=== PATIENT | male | born 1950 | race Caucasian/White ===

== ENCOUNTER 2018-12-08 20:54 | Emergency (ER) | payer OTHER ==
[~2018-12-08] VITALS: Ht 185.4 cm; Wt 181.4 kg
[2018-12-08 21:47] LABS: ABSOLUTE BASOPHILS 0.1 thou/uL (0.0-0.2); ABSOLUTE EOSINOPHILS 0.3 thou/uL (0.0-0.7); ABSOLUTE LYMPHOCYTES 2.2 thou/uL (0.8-5.3); ABSOLUTE MONOCYTES 0.9 thou/uL (0.0-1.2); ABSOLUTE NEUTROPHILS 5.6 thou/uL (1.6-8.1); BASOPHILS 1.3 %; EOSINOPHILS 3.3 %; HEMATOCRIT 37.6 % (42.0-52.0); HEMOGLOBIN 12.8 gm/dL (14.0-18.0); LYMPHOCYTES 23.8 %; MCH 32.8 pg (26.0-34.0); MCV 96.5 fL (80.0-100.0); MONOCYTES 10.1 %; MPV 8.5 fl. (7.2-11.1); NUCLEATED RBCS 0 /100WBC; PLATELET COUNT* 186 thou/uL (150-400); POLYS 61.5 %; RDW-CV 14.3 % (10.5-14.5); WBC 9.1 thou/uL (4.0-11.0)
[2018-12-08 21:51] LABS: ANION GAP 7 mmol/L (7-16); BUN 15 mg/dL (7-18); CALCIUM 8.5 mg/dL (8.5-10.1); CHLORIDE 105 mmol/L (98-107); CO2 27 mmol/L (21-32); CREATININE 1.2 mg/dL (0.6-1.3); GLUCOSE 113 mg/dL (70-99); POTASSIUM 4.1 mmol/L (3.5-5.1); SODIUM 139 mmol/L (136-145)
[2018-12-08 21:58] LABS: ALBUMIN 2.9 g/dL (3.4-5.0); ALKALINE PHOSPHATASE 77 U/L (46-116); SGOT 18 U/L (15-37); SGPT 22 U/L (30-65); TOTAL BILIRUBIN 0.4 mg/dL (<0.1-1.0); TOTAL PROTEIN 6.6 g/dL (6.4-8.2); TROPONIN-I LEVEL <0.06 ng/mL (<0.06)
[2018-12-08] MEDS ORDERED: LASIX 40 MG TAB40 M2 PO (22:32)
[2018-12-08] MEDS ORDERED: MEDROLDOSEPACK PO (22:32)
[2018-12-08] MEDS ORDERED: KEFLEX500 M1 PO (22:32)
[2018-12-08 23:08] VITALS: BP 157/74
--- NOTE | 2018-12-09 12:14 | EKG ---
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1950 Requested By: Gina Chou Order Number: [id number] MD: Jun Cho Measurements Intervals [place] Rate: 110 P: 268 IA: 158 QRS: -51 QRSD: 99 T: 43 QT: 325 QTc: 440 Interpretive Statements Sinus or ectopic atrial tachycardia LAD, consider left anterior fascicular block Abnormal R-wave progression, early transition No previous ECG available for comparison Electronically Signed On 12-09-2018 12:14:28 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
== END 2018-12-08 23:14 | disposition home or self-care (01) ==
LOC: M.ERS 20:54
PROVIDERS: Physician Assistant
DX: R21 Rash and other nonspecific skin eruption (principal); R60.0 Localized edema; E03.9 Hypothyroidism, unspecified; G47.30 Sleep apnea, unspecified; Z95.5 Presence of coronary angioplasty implant and graft

== ENCOUNTER 2019-01-23 16:47 | Emergency (ER) | payer OTHER ==
[~2019-01-23] VITALS: Ht 190.5 cm; Wt 193.7 kg
[~2019-01-23 16:47] MED LIST: KEFLEX500 M1 PO; LASIX 40 MG TAB40 M2 PO; MEDROLDOSEPACK PO
[2019-01-23 17:10] LABS: ABSOLUTE BASOPHILS 0.1 thou/uL (0.0-0.2); ABSOLUTE EOSINOPHILS 0.1 thou/uL (0.0-0.7); ABSOLUTE LYMPHOCYTES 2.3 thou/uL (0.8-5.3); ABSOLUTE MONOCYTES 1.5 thou/uL (0.0-1.2); ABSOLUTE NEUTROPHILS 8.4 thou/uL (1.6-8.1); BASOPHILS 0.9 %; EOSINOPHILS 0.6 %; HEMOGLOBIN 13.4 gm/dL (14.0-18.0); LYMPHOCYTES 18.4 %; MCH 31.8 pg (26.0-34.0); MCHC 33.5 g/dL (28.0-37.0); MCV 94.9 fL (80.0-100.0); MONOCYTES 11.9 %; MPV 8.2 fl. (7.2-11.1); NUCLEATED RBCS 0 /100WBC; PLATELET COUNT* 210 thou/uL (150-400); POLYS 68.2 %; RBC 4.21 mil/uL (4.50-6.00); RDW-CV 14.1 % (10.5-14.5); WBC 12.3 thou/uL (4.0-11.0)
[2019-01-23 17:19] LABS: APTT 28.7 Seconds (25.0-31.3); INR 1.1; PROTIME 10.9 Seconds (9.20-11.50)
[2019-01-23 17:29] LABS: ANION GAP 10 mmol/L (7-16); BUN 17 mg/dL (7-18); CALCIUM 8.8 mg/dL (8.5-10.1); CHLORIDE 104 mmol/L (98-107); CO2 27 mmol/L (21-32); CREATININE 1.1 mg/dL (0.6-1.3); GLUCOSE 107 mg/dL (70-99); POTASSIUM 4.1 mmol/L (3.5-5.1); SODIUM 141 mmol/L (136-145); TROPONIN-I LEVEL <0.06 ng/mL (<0.06)
[2019-01-23 17:32] LABS: ALBUMIN 3.3 g/dL (3.4-5.0); ALKALINE PHOSPHATASE 72 U/L (46-116); CK-MB MASS 1.2 ng/mL (<0.5-3.6); LIPASE 71 U/L (73-393); MAGNESIUM 1.8 mg/dL (1.8-2.4); NT-PRO BRAIN NAT PEPTIDE 605 pg/mL (<300); SGOT 18 U/L (15-37); SGPT 20 U/L (30-65); TOTAL BILIRUBIN 0.5 mg/dL (<0.1-1.0); TOTAL PROTEIN 7.3 g/dL (6.4-8.2)
[2019-01-23] MEDS ORDERED: AMOXICILLIN 50500 MG PO (18:36)
[2019-01-23] MEDS ORDERED: NORCO 5-325 TA1 EACH PO (18:36)
[2019-01-23 18:47] VITALS: BP 132/78
--- NOTE | 2019-01-24 13:41 | EKG ---
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 : 1950 Requested By: Marco Durant Order Number: [id number] MD: Huy Wood Measurements Intervals [place] Rate: 129 P: -59 NE: 134 QRS: -80 QRSD: 102 T: 64 QT: 309 QTc: 453 Interpretive Statements Sinus tachycardia Ventricular bigeminy LAD, consider left anterior fascicular block Abnormal R-wave progression, late transition Compared to ECG 12/08/2018 21:36:47 Ventricular premature complex(es) now present Electronically Signed On 01-24-2019 13:41:17 CDT by Huy Wood [email or web address] <ELECTRONICALLY SIGNED> By: Huy Wood MD, FACC 01/24/19 1341 1655 1655 Huy Wood MD, FAC /EPI
== END 2019-01-23 18:48 | disposition home or self-care (01) ==
LOC: M.ERS 16:47
PROVIDERS: Family Medicine
DX: K04.7 Periapical abscess without sinus (principal); R00.0 Tachycardia, unspecified; E03.9 Hypothyroidism, unspecified; G47.30 Sleep apnea, unspecified; Z95.5 Presence of coronary angioplasty implant and graft

== ENCOUNTER → 2019-02-19 | Outpatient (CLI) | payer OTHER ==
[~2019-02-19] MED LIST changes: +AMOXICILLIN 50500 MG PO; +NORCO 5-325 TA1 EACH PO
== END ==
LOC: M.ULTRA 13:04
DX: K11.9 Disease of salivary gland, unspecified (principal)

== ENCOUNTER 2020-02-03 06:40 | Inpatient (IN) | payer OTHER ==
[~2020-02-03] VITALS: Ht 188 cm; Wt 194.1 kg
[2020-02-03 06:41] VITALS: BP 136/67
[2020-02-03 07:05] LABS: URINE BILIRUBIN NEGATIVE (Negative); URINE BLOOD 3+ (Negative); URINE CLARITY CLEAR; URINE COLOR YELLOW; URINE GLUCOSE-RANDOM NEGATIVE (Negative); URINE KETONES NEGATIVE (Negative); URINE NITRITE-REFLEX NEGATIVE (Negative); URINE PROTEIN 3+ (Negative); URINE UROBILINOGEN 0.2 E.U./dl (0.2-1.0)
[2020-02-03 07:08] LABS: URINE LEUKOCYTES-REFLEX 2+ (Negative)
[2020-02-03 07:15] LABS: CASTS None Seen /LPF (None Seen); CRYSTALS None Seen /LPF (None Seen); MUCUS 0-3 Light strn/LPF (None Seen); SQUAMOUS 0-3 Few /LPF (0-3)
[2020-02-03 07:41] LABS: INFLUENZA A ANTIGEN Negative (Negative); INFLUENZA B ANTIGEN Negative (Negative)
[2020-02-03 08:01] LABS: INR 1.2; PROTIME 12.2 Seconds (9.20-11.50)
[2020-02-03 08:08] LABS: CREATININE 1.5 mg/dL (0.6-1.3); POTASSIUM 4.2 mmol/L (3.5-5.1)
[2020-02-03 08:19] LABS: ALBUMIN 2.7 g/dL (3.4-5.0); MAGNESIUM 1.8 mg/dL (1.8-2.4); TOTAL BILIRUBIN 0.4 mg/dL (<0.1-1.0); TOTAL PROTEIN 6.8 g/dL (6.4-8.2)
[2020-02-03 08:36] LABS: ABSOLUTE MONOCYTES 1.6 thou/uL (0.0-1.2); ABSOLUTE NEUTROPHILS 18.6 thou/uL (1.6-8.1); BASOPHILS 0.2 %; HEMATOCRIT 37.5 % (42.0-52.0); HEMOGLOBIN 12.4 gm/dL (14.0-18.0); LYMPHOCYTES 4.9 %; MCH 31.6 pg (26.0-34.0); MCHC 33.2 g/dL (28.0-37.0); MCV 95.2 fL (80.0-100.0); MONOCYTES 7.4 %; MPV 8.6 fl. (7.2-11.1); NUCLEATED RBCS 0 /100WBC; PLATELET COUNT* 212 thou/uL (150-400); POLYS 87.5 %; RBC 3.93 mil/uL (4.50-6.00); RDW-CV 15.7 % (10.5-14.5); WBC 21.3 thou/uL (4.0-11.0)
[2020-02-03] MEDS ORDERED: ALLOPURINOL 10100 M1 PO (08:49)
[2020-02-03] MEDS ORDERED: TRAMADOL 50 MG50 MG (08:49)
[2020-02-03] MEDS ORDERED: FUROSEMIDE 40 M40 MG PO (08:49)
[2020-02-03] MEDS ORDERED: SERTRALINE HCL50 MG PO (08:50)
[2020-02-03] MEDS ORDERED: CITRACAL + D E1 EACH PO (08:50)
[2020-02-03] MEDS ORDERED: MYSOLINE50 MG PO (08:50)
[2020-02-03] MEDS ORDERED: VITAMIN B-121000 MC2 SUBLING (08:50)
[2020-02-03] MEDS ORDERED: METHYLPREDNISOLO8 MG PO (08:51)
--- NOTE | 2020-02-03 10:20 | EKG ---
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 : 1950 Requested By: Gina Wilder Order Number: [id number] MD: Jnu Cho Measurements Intervals [place] Rate: 116 P: 46 DE: 166 QRS: 25 QRSD: 100 T: 59 QT: 322 QTc: 448 Interpretive Statements Sinus tachycardia Incomplete RBBB and LAFB Compared to ECG 01/23/2019 16:55:30 Ventricular premature complex(es) no longer present Electronically Signed On 02-03-2020 10:19:25 CDT by Jun Cho [email or web address] <ELECTRONICALLY SIGNED> By: Jun Cho MD, [facility] 02/03/20 1019 0642 0642 Jun Cho MD, [facility] /EPI
[2020-02-03 11:33] VITALS: BP 114/58
[2020-02-03 13:05] VITALS: BP 114/45
[2020-02-03 14:44] LABS: CHOLESTEROL 123 mg/dL (<200); HDL CHOLESTEROL 54 mg/dL (>40); LDL CHOLESTEROL 60 mg/dL (<100); MAGNESIUM 1.9 mg/dL (1.8-2.4); SERUM ASSESSMENT Clear; TC:HDL 2.3 Ratio (Not establshd); TRIGLYCERIDE 47 mg/dL (<150); VLDL 9 mg/dL (<40)
--- NOTE | 2020-02-03 16:22 | 2DMMODE ---
[place] [address] 2 D/M-MODE ECHOCARDIOGRAM Name: CAROL ROSENBERG [facility] Room: [address] IN Sil#: [id number] Admission: 02/03/20 Attend Phys: Sara basurto Sa Discharge: Date of : 48 Date of Service: 02/03/20 1620 Report #: [id number] THIS REPORT FOR: cc: Luciano Saavedra MD, Daljeet MD Blick, David R. MD [facility] ~ APPROVED REPORT Study performed: 02/03/2020 13:41:04 EXAM: Comprehensive 2D, Doppler, and color-flow Echocardiogram Patient Location: In-Patient Room #: [facility] Status: routine BSA: 3.00 HR: 114 bpm BP: 124/56 mmHg Rhythm: NSR Other Information Study Quality: Good Indications Dyspnea 2D Dimensions IVSd: 11.17 (7-11mm) LVOT Diam: 22.17 (18-24mm) LVDd: 68.98 mm PWd: 12.07 (7-11mm) Ascending Ao: 35.74 (22-36mm) LVDs: 59.56 (25-40mm) Aortic Root: 32.34 mm Volumes Left Atrial Volume (Systole) LA ESV Index: 28.70 mL/m2 Aortic Valve AoV Peak Jaime.: 1.74 m/s AO Peak Gr.: 12.13 mmHg LVOT Max P.82 mmHg AO Mean Gr.: 6.85 mmHg LVOT Mean P.86 mmHg LVOT Max V: 1.21 m/s AO V2 VTI: 27.38 cm LVOT Mean V: 0.76 m/s MASSIEL (VTI): 2.52 cm2 LVOT V1 VTI: 17.85 [place] [address] 2 D/M-MODE ECHOCARDIOGRAM Name: CAROL ROSENBERG Room: [address]#: [id number] Admission: 02/03/20 Attend Phys: Sara basurto Sa Discharge: Date of : 48 Date of Service: 02/03/20 1620 Report #: [id number] Mitral Valve E/A Ratio: 1.00 MV Decel. Time: 149.18 ms MV E Max Jaime.: 1.04 m/s MV PHT: 43.26 ms MVA (PHT): 5.09 cm2 Pulmonary Valve PV Peak Jaime.: 1.12 m/s PV Peak Gr.: 5.06 mmHg Left Ventricle The left ventricle is normal size. There is normal LV segmental wall motion. Mild concentric left ventricular hypertrophy. Left ventricular systolic function is borderline. LVEF is 50-55%. Grade I - abnormal relaxation pattern. Right Ventricle The right ventricle is normal size. The right ventricular systolic function is normal. Atria The left atrium size is normal. The right atrium size is normal. Aortic Valve The aortic valve is normal in structure. No aortic regurgitation is present. There is no aortic valvular stenosis. Mitral Valve The mitral valve is normal in structure. There is trace mitral valve regurgitation noted. No evidence of mitral valve stenosis. Tricuspid Valve The tricuspid valve is normal in structure. There is no tricuspid valve regurgitation noted. Pulmonic Valve The pulmonary valve is normal in structure. There is no pulmonic valvular regurgitation. Great Vessels The aortic root is normal in size. IVC is not well visualized. Pericardium There is [place] [address] 2 D/M-MODE ECHOCARDIOGRAM Name: SHAKIRACAROL Room: [address] IN .R.#: [id number] Admission: 02/03/20 Attend Phys: Sara basurto Sa Discharge: Date of : 48 Date of Service: 02/03/20 1620 Report #: [id number] <Conclusion> Mild concentric left ventricular hypertrophy. LVEF is 50-55%. <ELECTRONICALLY SIGNED> By: Jun Cho MD, [facility] 02/03/201619 19 1620 Jun Cho MD, FACC /INF
[2020-02-03 17:52] VITALS: BP 156/85
[2020-02-03 20:00] VITALS: BP 141/72
[2020-02-03 20:08] LABS: AMP/METHAMP Negative (Negative); BARBITURATES Negative (Negative); BENZODIAZEPINES Negative (Negative); COCAINE Negative (Negative); METHADONE Negative (Negative); OPIATES Negative (Negative); PCP Negative (Negative); THC Negative (Negative)
[2020-02-04] VITALS: BP 138/65
[2020-02-04 02:07] LABS: GLYCOHEMOGLOBIN (HGB A1C) 5.5 % (4.8-5.6)
[2020-02-04 04:00] VITALS: BP 130/62
[2020-02-04 06:36] LABS: ALBUMIN 2.4 g/dL (3.4-5.0); CALCIUM 8.4 mg/dL (8.5-10.1); CREATININE 1.5 mg/dL (0.6-1.3); POTASSIUM 3.7 mmol/L (3.5-5.1); TOTAL BILIRUBIN 0.6 mg/dL (<0.1-1.0); TOTAL PROTEIN 7.8 g/dL (6.4-8.2)
[2020-02-04 06:42] LABS: HEMATOCRIT 42.1 % (42.0-52.0); HEMOGLOBIN 14.1 gm/dL (14.0-18.0); MCH 32.2 pg (26.0-34.0); MCHC 33.4 g/dL (28.0-37.0); MCV 96.1 fL (80.0-100.0); MPV 9.3 fl. (7.2-11.1); RBC 4.38 mil/uL (4.50-6.00); RDW-CV 15.8 % (10.5-14.5); WBC 22.8 thou/uL (4.0-11.0)
[2020-02-04 09:00] VITALS: BP 145/78
[2020-02-04 12:23] VITALS: BP 160/92
--- NOTE | 2020-02-04 14:39 | EKG ---
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 : 1950 Requested By: Sara Pierre Order Number: [id number] Reading MD: Jun Cho Measurements Intervals [place] Rate: 119 P: 35 [place]: 147 QRS: -42 QRSD: 113 T: 43 QT: 359 QTc: 506 Interpretive Statements Sinus tachycardia and pac's incomplete RBBB Paired ventricular premature complexes LAD, consider left anterior fascicular block Low voltage, precordial leads Compared to ECG 02/03/2020 06:42:13 Ventricular premature complex(es) now present Electronically Signed On 02-04-2020 14:38:12 CDT by Jun Cho [email or web address] <ELECTRONICALLY SIGNED> By: Jun Cho MD, [facility] 02/04/20 1438 1128 1128 Jun Cho MD, [facility] /EPI
[2020-02-04 16:54] VITALS: BP 136/73
[2020-02-04 20:00] VITALS: BP 120/70
[2020-02-05] VITALS: BP 156/89
[2020-02-05 04:00] VITALS: BP 146/79
[2020-02-05 08:45] LABS: CALCIUM 8.4 mg/dL (8.5-10.1); CREATININE 1.3 mg/dL (0.6-1.3); MAGNESIUM 2.1 mg/dL (1.8-2.4); PHOSPHORUS* 3.7 mg/dL (2.5-4.9); POTASSIUM 3.4 mmol/L (3.5-5.1)
[2020-02-05 09:01] LABS: HEMATOCRIT 39.8 % (42.0-52.0); HEMOGLOBIN 13.5 gm/dL (14.0-18.0); MCH 31.8 pg (26.0-34.0); MCHC 33.8 g/dL (28.0-37.0); MPV 8.8 fl. (7.2-11.1); RBC 4.23 mil/uL (4.50-6.00); RDW-CV 15.4 % (10.5-14.5); WBC 14.8 thou/uL (4.0-11.0)
--- NOTE | 2020-02-05 10:45 | CON ---
[address] [address] CONSULTATION Name: CAROL ROSENBERG Room: [address] IN M.R.#: [id number] Admission: 02/03/20 Attend Phys: Sara Holder Discharge: Date of : 48 Report #: [id number] THIS REPORT FOR: //name// cc: Luciano Saavedra MD, Daljeet MD ~ THIS REPORT FOR: //name// CC: Luciano Pierre DATE OF SERVICE: 02/04/2020 INFECTIOUS DISEASE CONSULTATION ATTENDING PHYSICIAN: Sara Pierre MD REASON FOR EVALUATION: Complicated UTI, fevers with a cough exclude COVID virus, also recent evidence of dental infection with periapical abscesses of the right maxilla and left mandible on imaging, soft tissue swelling and has a gas component adjacent to the left mandible is notable this was on CT from 10 days ago, possible right parotid mass. HISTORY OF PRESENT ILLNESS: He was seen in the emergency room with complaints of generalized weakness, fever, rhinorrhea, congestion, cough, had fallen and was disoriented as well. Initially urinalysis did show moderate pyuria. Urine culture with Proteus mirabilis. Influenza antigen was negative. Troponin 0.07. Chest x-ray showed mild diffuse interstitial infiltrate. Electrolytes: Sodium 137, potassium 4.2, chloride 100, bicarbonate is 26, anion gap of 11, creatinine of 1.5. Lactic acid was 2.1. White count was elevated 21.3 and an absolute lymphocyte count of 1000. Blood cultures are sterile thus far. Due to concern about the COVID, he was admitted. He has actually had some persistent fevers as high as 101.4 overnight. He was afebrile this morning, empirically started on therapy with azithromycin and ceftriaxone. ALLERGIES: PROPRANOLOL. CURRENT MEDICATIONS: Include metoprolol, cyanocobalamin, sertraline, albuterol, primidone, azithromycin and ceftriaxone. PAST MEDICAL HISTORY: History of cardiomyopathy with congestive heart failure, hypothyroidism, sleep apnea, varicella zoster. SOCIAL HISTORY: Nonsmoker, no ethanol or illicit drug use. FAMILY HISTORY: Noncontributory[place] [address] CONSULTATION Name: CAROL ROSENBERG [facility] Room: [address]#: [id number] Admission: 02/03/20 Attend Phys: Sara Holder Discharge: Date of : 48 Report #: [id number] REVIEW OF SYSTEMS: As above, otherwise unremarkable. PHYSICAL EXAMINATION: GENERAL: Alert, cooperative, appropriate, is in keks-xn-mzgngmki distress. He is generally lucid. He is obese. He has got very thick neck. VITAL SIGNS: Temperature 98.8, T-max overnight of 101.4, pulse 105, respirations 18, blood pressure 130/62. SKIN: Warm, dry, no rashes. HEENT AND NECK: Appears to be supple. Extraocular muscles intact. Normocephalic. LUNGS: Scattered coarse breath sounds, distant. HEART: Distant, seems to me regular. I do not appreciate any murmur. ABDOMEN: Obese, soft, nontender. EXTREMITIES: No cyanosis. GENITOURINARY: Deferred. LABORATORY DATA: Urine culture, growth of Proteus mirabilis. Blood cultures sterile thus far. CBC: White count of 22.8, H and H 14.1 and 42.1, platelets of 174. Electrolytes: Sodium 137, potassium 3.7, chloride 99, bicarbonate is 29, BUN and creatinine 19 and 1.5. LFTs unremarkable. Albumin 2.4, total protein 7.8, hemoglobin A1c of 5.5. TSH 1.606. ASSESSMENT AND PLAN: Febrile illness with fair pneumonitis may well have a head and neck infection as well. We will adjust antimicrobial therapy. Repeat imaging of the neck as possible. Await exclusion of a COVID-19. He was in the ER on 01/23/2019 and may have been a possible exposure potential. At this point, he is not overtly toxic. We will monitor expectantly. <ELECTRONICALLY SIGNED> By: Vega Rose MD 02/05/20 1045 1231 [email or web address] Rose MD /nt
[2020-02-05 12:00] VITALS: BP 144/85
[2020-02-05 18:45] VITALS: BP 138/74
[2020-02-05 21:00] VITALS: BP 136/64
[2020-02-06] VITALS: BP 105/56
[2020-02-06 04:00] VITALS: BP 158/90
[2020-02-06 05:52] LABS: HEMATOCRIT 40.6 % (42.0-52.0); HEMOGLOBIN 13.8 gm/dL (14.0-18.0); MCH 32.1 pg (26.0-34.0); MCHC 33.9 g/dL (28.0-37.0); MCV 94.5 fL (80.0-100.0); MPV 9.3 fl. (7.2-11.1); RBC 4.3 mil/uL (4.50-6.00); RDW-CV 15.6 % (10.5-14.5); WBC 12.5 thou/uL (4.0-11.0)
[2020-02-06 06:03] LABS: CALCIUM 8.3 mg/dL (8.5-10.1); CREATININE 1.2 mg/dL (0.6-1.3); PHOSPHORUS* 3.9 mg/dL (2.5-4.9); POTASSIUM 3.5 mmol/L (3.5-5.1)
[2020-02-06 08:10] VITALS: BP 126/82
[2020-02-06 11:21] VITALS: BP 123/63
[2020-02-06 17:35] VITALS: BP 128/66
[2020-02-06 20:00] VITALS: BP 136/82
[2020-02-07] VITALS (7 sets, daily range): BP systolic 93–135; BP diastolic 41–81
[2020-02-07 05:21] LABS: HEMATOCRIT 41.6 % (42.0-52.0); MCH 31.8 pg (26.0-34.0); MCHC 33.7 g/dL (28.0-37.0); MCV 94.5 fL (80.0-100.0); MPV 9.2 fl. (7.2-11.1); NUCLEATED RBCS 0 /100WBC; PLATELET COUNT* 244 thou/uL (150-400); WBC 12.1 thou/uL (4.0-11.0)
[2020-02-07 05:34] LABS: ALBUMIN 2.2 g/dL (3.4-5.0); CALCIUM 8.4 mg/dL (8.5-10.1); CREATININE 1.3 mg/dL (0.6-1.3); POTASSIUM 3.2 mmol/L (3.5-5.1); TOTAL BILIRUBIN 0.7 mg/dL (<0.1-1.0); TOTAL PROTEIN 7.3 g/dL (6.4-8.2)
[2020-02-07 06:08] LABS: ABSOLUTE LYMPHOCYTES 2.4 thou/uL (0.8-5.3); ABSOLUTE NEUTROPHILS 8.7 thou/uL (1.6-8.1); ANISOCYTOSIS 1+; PLATELET ESTIMATE ADEQUATE; POIKILOCYTOSIS 1+
[2020-02-08 00:12] VITALS: BP 143/66
[2020-02-08 04:00] VITALS: BP 168/89
[2020-02-08 08:00] VITALS: BP 135/72
[2020-02-08 09:30] LABS: ABSOLUTE BASOPHILS 0.1 thou/uL (0.0-0.2); ABSOLUTE EOSINOPHILS 0.3 thou/uL (0.0-0.7); ABSOLUTE LYMPHOCYTES 1.5 thou/uL (0.8-5.3); ABSOLUTE MONOCYTES 0.8 thou/uL (0.0-1.2); ABSOLUTE NEUTROPHILS 10.3 thou/uL (1.6-8.1); BASOPHILS 0.6 %; EOSINOPHILS 2.1 %; HEMATOCRIT 41.2 % (42.0-52.0); HEMOGLOBIN 13.9 gm/dL (14.0-18.0); LYMPHOCYTES 11.7 %; MCH 31.9 pg (26.0-34.0); MCHC 33.7 g/dL (28.0-37.0); MCV 94.5 fL (80.0-100.0); MONOCYTES 6.5 %; MPV 8.7 fl. (7.2-11.1); NUCLEATED RBCS 0 /100WBC; PLATELET COUNT* 273 thou/uL (150-400); POLYS 79.1 %; RBC 4.36 mil/uL (4.50-6.00)
[2020-02-08 09:43] LABS: ALBUMIN 2.2 g/dL (3.4-5.0); CALCIUM 8.2 mg/dL (8.5-10.1); CREATININE 1.1 mg/dL (0.6-1.3); MAGNESIUM 2.3 mg/dL (1.8-2.4); POTASSIUM 3.4 mmol/L (3.5-5.1); TOTAL BILIRUBIN 0.7 mg/dL (<0.1-1.0); TOTAL PROTEIN 7.2 g/dL (6.4-8.2)
[2020-02-08 12:49] VITALS: BP 120/62
[2020-02-08] MEDS ORDERED: AUGMENTIN 875-1 EACH PO (13:46)
[2020-02-08 13:52] VITALS: BP 120/62
[2020-02-08 17:59] VITALS: BP 118/69
== END 2020-02-08 18:50 | disposition home health service (06) | DRG 871 ==
LOC: M.ERS 06:40 → M.TBA-ER 09:00 → M.2W 09:00
PROVIDERS: Emergency Medicine Emergency Medical Services; Personal Emergency Response Attendant; ADMIT Family Medicine
DX: A41.9 Sepsis, unspecified organism (principal); J18.9 Pneumonia, unspecified organism; N17.0 Acute kidney failure with tubular necrosis; J96.20 Acute and chronic respiratory failure, unspecified whether with hypoxia or hypercapnia; I21.A1 Myocardial infarction type 2; I50.33 Acute on chronic diastolic (congestive) heart failure; L03.119 Cellulitis of unspecified part of limb; Z68.43 Body mass index [BMI] 50.0-59.9, adult; N30.01 Acute cystitis with hematuria; I42.8 Other cardiomyopathies; R65.20 Severe sepsis without septic shock; G47.33 Obstructive sleep apnea (adult) (pediatric); E66.01 Morbid (severe) obesity due to excess calories; E03.9 Hypothyroidism, unspecified; M10.9 Gout, unspecified; F41.9 Anxiety disorder, unspecified; F32.9 Major depressive disorder, single episode, unspecified; N20.0 Calculus of kidney; I87.8 Other specified disorders of veins; I87.2 Venous insufficiency (chronic) (peripheral); N18.3 Chronic kidney disease, stage 3 (moderate); Z88.8 Allergy status to other drugs, medicaments and biological substances; Z79.899 Other long term (current) drug therapy; Z99.81 Dependence on supplemental oxygen